=== PATIENT | female | born 1950 | race Caucasian/White ===

== ENCOUNTER → 2016-10-28 | Outpatient (CLI) | payer BC ==
[~2016-10-28] MED LIST: ALBUAER19 INH; AMLO5TAB4 PO; ASPI-232 PO; ATOR-22 PO; CALCTAB7 PO; CHOL20007 PO; DICY20TA10 PO; DVN160125 PO; FEXO1TAB49 PO; GLCS500 PO; IBUP-103 PO; METO-217 PO; OMEGCAP2 PO; POTA10CA28 PO; PRAV10TA39 PO; PRED20TA PO; VALS160T60 PO; VNTHFA/IN INH
--- NOTE | 2016-10-28 10:31 | DIAGNOSTIC IMAGING REPORT ---
ULTRASOUND KIDNEYS AND BLADDER CLINICAL HISTORY: Gross hematuria. COMPARISON STUDY: Abdominal CT dated 01/02/2016. TECHNIQUE: Real-time, grayscale, and color flow sonography of the kidneys and bladder is performed. Images are reviewed in the transverse and longitudinal planes. FINDINGS: Kidneys: The kidneys are normal in size and echotexture. The right kidney measures 11.5 cm and the left kidney measures 10.8 cm in length. There is mild prominence of the renal collecting system bilaterally. No hydronephrosis is seen. No shadowing renal calculi are identified. There is no sonographic evidence of contour deforming renal mass lesion. No perinephric fluid is identified. Bladder: The bladder is normal in appearance. Bilateral ureteral jets were seen. IMPRESSION: 1. The kidneys are normal in size and without hydronephrosis. 2. The bladder is normal as visualized. Electronically signed by: Taco Rivas M.D. 10/28/2016 10:29 AM Dictated Date/Time: 10/28/2016 10:22 AM
== END | disposition home or self-care (01) ==
LOC: C.ULTRBC 09:19
PROVIDERS: ATTEND Family Medicine
DX: D49.4 Neoplasm of unspecified behavior of bladder (principal); R31.0 Gross hematuria

== ENCOUNTER → 2016-11-19 | Outpatient (CLI) | payer BC | END | disposition home or self-care (01) | LOC: C.PATHSPEC 15:32 | PROVIDERS: ATTEND Urology | DX: D49.4 Neoplasm of unspecified behavior of bladder (principal) ==

== ENCOUNTER 2016-12-03 07:27 | Day surgery (SDC) | payer BC, OTHER ==
[2016-12-01 13:59] VITALS: BMI 25.0
--- NOTE | 2016-12-01 14:31 | PAT Medication Instructions ---
Service Date Dec 01, 2016. Current Home Medication List Albuterol Inhaler (Ventolin Inhaler), 2 PUFFS INH Q4-6H PRN for Wheezing Amlodipine Besylate (Norvasc), 5 MG PO QAM Aspirin (Aspir-81), 81 MG PO QAM Calcium Carbonate-Vitamin D W/ (Caltrate 600 Plus), 1 TAB PO QAM Cholecalciferol (Vitamin D3), 1 TAB PO QAM Dicyclomine Hcl (Dicyclomine Hcl), 1 TAB PO TID PRN for PRN Fexofenadine Hcl (Patti Allergy), 1 TAB PO PRN Glucosamine Sulfate (Glucosamine *), 1 TAB PO QAM Ibuprofen Tab (Advil), 200 MG PO PRN Metoprolol Succinate (Toprol Xl), 50 MG PO QAM Lincoln-3 Fatty Acids (Fish Oil), 1 CAP PO QAM Potassium Chloride (Micro-K Ext Rel), 10 MEQ PO QAM Pravastatin Sodium (Pravastatin Sodium), 20 MG PO QAM Valsartan/Hctz (Diovan Hct 160MG/25MG), 1 TAB PO QAM Medication Instructions For Your Scheduled Surgery - Check with surgeon for instructions: Aspirin (Aspir-81), 81 MG PO QAM Ibuprofen Tab (Advil), 200 MG PO PRN - Hold the following medications as of today 12/01/16: Glucosamine Sulfate (Glucosamine *), 1 TAB PO QAM Lincoln-3 Fatty Acids (Fish Oil), 1 CAP PO QAM - Hold the following medications the morning of surgery: Valsartan/Hctz (Diovan Hct 160MG/25MG), 1 TAB PO QAM Calcium Carbonate-Vitamin D W/ (Caltrate 600 Plus), 1 TAB PO QAM Cholecalciferol (Vitamin D3), 1 TAB PO QAM Fexofenadine Hcl (Patti Allergy), 1 TAB PO PRN Dicyclomine Hcl (Dicyclomine Hcl), 1 TAB PO TID PRN for PRN Potassium Chloride (Micro-K Ext Rel), 10 MEQ PO QAM - Take the following medications the morning of surgery with a sip of water OTHERWISE NOTHING TO EAT OR DRINK AFTER MIDNIGHT: Albuterol Inhaler (Ventolin Inhaler), 2 PUFFS INH Q4-6H PRN for Wheezing (use if needed; BRING TO HOSPITAL) Amlodipine Besylate (Norvasc), 5 MG PO QAM Metoprolol Succinate (Toprol Xl), 50 MG PO QAM Pravastatin Sodium (Pravastatin Sodium), 20 MG PO QAM - Take the following medications as scheduled the night before surgery: Albuterol Inhaler (Ventolin Inhaler), 2 PUFFS INH Q4-6H PRN for Wheezing Dicyclomine Hcl (Dicyclomine Hcl), 1 TAB PO TID PRN for PRN If you have any questions please call us at [phone] or [phone] or [phone]
[2016-12-01 15:15] LABS: BASO % 0.5 %; BASO ABS # 0.04 K/uL (0-0.2); COMPLETE YES; HEMATOCRIT 41.1 % (37-47); IG% 0.3 %; LYMPH % 21.4 %; LYMPH ABS # 1.64 K/uL (1.2-3.4); MEAN CELL VOLUME 89.9 fL (80-100); MEAN CORPUSCULAR HEMOGLOBIN 30.4 pg (25-34); MEAN CORPUSCULAR HGB CONC 33.8 g/dl (32-36); MEAN PLATELET VOLUME 10.3 fL (7.4-10.4); MONO % 5.5 %; NEUT % 70.3 %; PLATELET COUNT 306 K/uL (130-400); RED BLOOD COUNT 4.57 M/uL (4.2-5.4); WHITE BLOOD COUNT 7.65 K/uL (4.8-10.8)
[2016-12-01 15:45] LABS: BUN/CREATININE RATIO 22.9 (10-20); CALCIUM 9.3 mg/dl (8.5-10.1); CREATININE 0.84 mg/dl (0.60-1.20); POTASSIUM 3.5 mmol/L (3.5-5.1)
[~2016-12-03] VITALS: Ht 157.5 cm; Wt 61.2 kg
[~2016-12-03 07:27] MED LIST changes: +ACETAMINOPHEN 1000 MG/100 ML IV IV ONE; -AMLO5TAB4 PO; -ASPI-232 PO; -ATOR-22 PO; +CEFAZOLIN 2000 MG/60 ML D5W 50 ML IV SCH; +DEXAMETHASONE SOD INJ 4 MG/ML VIAL ONE; -DVN160125 PO; +EpHEDrine SULFATE INJ 50 MG/ML AMP ONE; +FENTANYL CITRATE INJ 50 MCG/1 ML 2 ML VIAL ONE; +GLYCOPYRROLATE INJ 0.2 MG/ML VIAL ONE; -IBUP-103 PO; +LACTATED RINGER'S 1000ML 1,000 ML IV SCH; +LIDOCAINE HCL 2% 2 ML VIAL (20MG/ML) ONE; -METO-217 PO; +MIDAZOLAM HCL 1 MG/ML 2ML VIAL ONE; +NEOSTIGMINE METHYLSULFATE 5 MG/5 ML SYR ONE; +ONDANSETRON INJ 2 MG/ML 2 ML VIAL ONE; +PHENYLEPHRINE HCL INJ 10 MG/ML VIAL ONE; -POTA10CA28 PO; -PRED20TA PO; +PROPOFOL IV EMULSION 10 MG/ML 20 ML VIAL IV ONE; +ROCURONIUM BROMIDE 10 MG/ML 5 ML VIAL ONE; +SCOPOLAMINE 1.5 MG TDSY TD SCH; +SUCCINYLCHOLINE CHLORIDE 20 MG/ML 10 ML VIAL IV ONE; -VALS160T60 PO; -VNTHFA/IN INH
[2016-12-03] MEDS ORDERED: METOCLOPRAMIDE HCL INJ 5 MG/ML 2 ML VIAL ONE (07:52)
[2016-12-03 08:04] VITALS: BP 150/85; PULSE 65; TEMP 36.9; O2SAT 96; Ht 157.5 cm; Wt 61.2 kg
[2016-12-03] MEDS ORDERED: SODIUM CHLORIDE 0.9% 1000ML 1,000 ML IV SCH (08:49)
--- NOTE | 2016-12-03 08:49 | History & Physical Bridge Note ---
H&P Re-Evaluation Bridge Note: I have examined the patient, reviewed the History & Physical and in the interval since the performance of the History & Physical I have noted the following changes of clinical significance: No changes noted
--- NOTE | 2016-12-03 08:50 | Discharge Instructions ---
Discharge Instructions Visit Reason for Visit: Left Ovarian Cyst Discharge Discharge Diagnosis / Problem: Ovarian cyst Discharge Goals Goal(s): Specific goals Activity Recommendations Activity Limitations: per Instructions/Follow-up section Anesthesia . Post Anesthesia Instructions: If you have had General Anesthesia or IV Sedation: * Do not drive today. * Resume driving when surgeon permits. * Do not make important decisions or sign legal documents today. * Call surgeon for: 1. Temperature elevations greater than 101 degrees F. 2. Uncontrollable pain. 3. Excessive bleeding. 4. Persistent nausea and vomiting. 5. Medication intolerance (nausea, vomiting or rash). * For nausea and vomiting use only clear liquids such as: tea, soda, bouillon until nausea subsides, then gradually increase diet as tolerated. * If you have any concerns or questions, call your surgeon's office. If physician is unavailable and it is an emergency, call 911 or go to the nearest emergency room. . Instructions / Follow-Up Instructions / Follow-Up ACTIVITY RECOMMENDATIONS: * Rest the first 2-3 days. You should be back to your normal activity levels by day 3. * No heavy lifting for 2 weeks. * No intercourse, tampons or douching for 1-2 weeks. * You may shower the next day. * Do not drive anytime that you are taking narcotic pain medicines. RETURN TO SCHOOL/WORK: * May return to school or work after 2-3 days. DIET: Nausea may occur in the immediate post-operative period. If so, take clear liquids such as tea, bouillon, apple juice until all nausea has subsided, then resume usual diet. MEDICATIONS: Resume previous medications unless instructed otherwise by your surgeon. Ibuprofen 200mg 2-3 tablets every 4-6 hours as needed -- OR -- Aleve 2 tablets every 8-12 hours as needed for post-operative discomfort Medications are over the counter. Tylenol may be used if above medications are contraindicated or not preferred. Medication should be taken with food or milk. Do not take on an empty stomach. SPECIAL CARE INSTRUCTIONS: * Check temperature twice daily for one week. report any elevation over 101 degrees. * You may experience some vagina spotting and/or bleeding. This is normal for 1 -2 weeks and should not be heavier than a normal period. If it is unusual in amount, call your physician. * Post-operative discomfort may consist of a sore throat, a "bloated" feeling and pain in the shoulders. these are normal symptoms, which usually only last for 2-3 days. * Remove band-aids tomorrow and shower. There is no need to replace band-aids unless there is drainage or discomfort. FOLLOW UP VISIT: Call your doctor's office for a post-operative 2 week visit if not already scheduled. Diet Recommendations Recommended Home Diet: resume previous diet Medical Emergencies . Who to Call and When: Medical Emergencies: If at any time you feel your situation is an emergency, please call 911 immediately. . Non-Emergent Contact . . "Provider Documentation" section prepared by Regla Cruz.
[2016-12-03] MEDS ORDERED: ONDANSETRON INJ 2 MG/ML 2 ML VIAL IV PRN (09:00)
[2016-12-03] MEDS ORDERED: IBUPROFEN 600 MG TAB PO PRN (09:00)
[2016-12-03] MEDS ORDERED: KETOROLAC TROMETHAMINE 15 MG/ML VIAL IV. PRN (09:00)
[2016-12-03] MEDS ORDERED: PROMETHAZINE HCL INJ 25 MG in SODIUM CHLORIDE 0.9% 50ML 50 ML IV PRN (09:00)
[2016-12-03] MEDS ORDERED: OXYCODONE/ACETAMINOPHEN 5-325 TAB PO PRN ×2 (09:00)
[2016-12-03] MEDS ORDERED: GLYCOPYRROLATE INJ 0.2 MG/ML VIAL ONE (09:41)
[2016-12-03] MEDS ORDERED: PROPOFOL IV EMULSION 10 MG/ML 20 ML VIAL IV ONE (09:41)
[2016-12-03] MEDS ORDERED: ONDANSETRON INJ 2 MG/ML 2 ML VIAL ONE (09:41)
[2016-12-03] MEDS ORDERED: DEXAMETHASONE SOD INJ 4 MG/ML VIAL ONE (09:41)
--- NOTE | 2016-12-03 09:58 | [facility] Post Operative Brief Note ---
Immediate Operative Summary Operative Date Dec 03, 2016. Pre-Operative Diagnosis Left ovarian cyst Post-Operative Diagnosis Same as pre-operative diagnosis Procedure(s) Performed Laparoscopic Left Salpingo-Oophorectomy Surgeon Dr. Regla Cruz Community Case Manager Surgeon(s) Dr. Jo Christopher Estimated Blood Loss 5ml Findings R streak ovary. L ovary approx 2-3cm in greatest dimension. Tubes and uterus WNL. Specimens A: Left ovary and fallopian tube Complication(s) None Disposition Recovery Room / PACU
--- NOTE | 2016-12-03 10:04 | Medical Student: [facility] ---
Operative Report Operative Date Dec 03, 2016. Pre-Operative Diagnosis left ovarian cyst Post-Operative Diagnosis left ovarian cyst Procedure(s) Performed laparoscopic left salpingo-oophorectomy Surgeon Dr. Cruz Caramel Coloring Operator Surgeon(s) Dr. Christopher Estimated Blood Loss 5mls Findings excised enlarged left ovary with tube, streak right ovary and tube, normal appearing ligaments, normal appearing uterus Specimens left ovary and tube Drains hammond catheter Anesthesia general Complication(s) None Disposition Recovery Room / PACU Implants none
[2016-12-03 10:40] VITALS: BP 128/78; PULSE 57; TEMP 36.5; O2SAT 98
[2016-12-03 11:10] VITALS: BP 114/70; PULSE 56; TEMP 36.7; O2SAT 97
--- NOTE | 2016-12-03 12:28 | Anesthesiology Progress Note ---
Anesthesia Post Op Note Date & Time Dec 03, 2016 at 12:28 Vital Signs Pain Intensity: 5.0 Vital Signs Past 12 Hours Date Time Temp Pulse Resp B/P Pulse Ox O2 Delivery O2 Flow Rate FiO2 12/03/16 11:10 36.7 56 16 114/70 97 Nasal Cannula 0 12/03/16 10:40 36.5 57 16 128/78 98 Nasal Cannula 0 12/03/16 10:35 36.5 59 16 140/80 100 Nasal Cannula 2 12/03/16 10:25 62 16 128/79 100 Nasal Cannula 2 12/03/16 10:15 72 16 127/73 100 Mask 10 12/03/16 10:05 71 16 128/73 100 Mask 10 12/03/16 10:02 36.2 74 12 124/75 100 Mask 10 12/03/16 08:04 36.9 65 18 150/85 96 Room Air Notes Mental Status: alert / awake / arousable, participated in evaluation Pt Amnestic to Procedure: Yes Nausea / Vomiting: adequately controlled Pain: adequately controlled Airway Patency, RR, SpO2: stable & adequate BP & HR: stable & adequate Hydration State: stable & adequate Anesthetic Complications: no major complications apparent
--- NOTE | 2016-12-09 13:00 | OPERATIVE REPORT ---
DATE OF OPERATION: 12/03/2016 PREOPERATIVE DIAGNOSIS: Left ovarian cyst. POSTOPERATIVE DIAGNOSIS: Same. PROCEDURE: Laparoscopic left salpingo-oophorectomy. SURGEON: Dr. Cruz. CERTIFIED DIABETES EDUCATOR: Dr. Jo Christopher. ESTIMATED BLOOD LOSS: 5 mL. FINDINGS: Right streak ovary, left ovary 2-3 cm in greatest dimension and tubes and uterus within normal limits. SPECIMENS: Left ovary and fallopian tube. COMPLICATIONS: None. DISPOSITION: Stable to the recovery room. OPERATION AND FINDINGS: DESCRIPTION: Madelaine was placed on the table in the supine position. A Daniels catheter was established. The abdomen was then prepped. Entry was made to the umbilicus in optical manner without complication. The abdomen was then insufflated. The patient was placed in Trendelenburg position and right and left lower quadrant ports were established under direct visualization without complication. The pelvic organs appeared to show a normal uterus, normal tubes and right streak ovary with a left ovary that was slightly dilated 2-3 cm in greatest dimension. While the insurance account assistant elevated the left tube using an atraumatic grasper, I used the Harmonic scalpel to ligate and divide the left IP ligament, left uteroovarian ligament and left tubal stump excising the left ovary and tube en bloc. This was then retrieved using an EndoCatch bag through the patient's umbilicus intact. After the sample had been retrieved, the final survey of the pelvic area revealed good hemostasis at all working sites. The abdomen was desufflated, ports were removed. The umbilicus was closed using a UR-6 at the fascial layer and all sites were closed using Dermabond at the skin. The patient was then transferred to the recovery room in stable condition. I attest to the content of the Intraoperative Record and any orders documented therein. Any exceptio ns are noted below.
[2017-06-20] MEDS ORDERED: POTA10CA28 PO (13:57)
[2017-06-20] MEDS ORDERED: METO-217 PO (13:57)
[2017-06-20] MEDS ORDERED: VALS160T60 PO (13:57)
[2017-06-20] MEDS ORDERED: IBUP-103 PO (13:58)
[2017-06-20] MEDS ORDERED: AMLO5TAB4 PO (14:15)
[2017-06-20] MEDS ORDERED: ASPI-232 PO (18:14)
== END 2016-12-03 11:50 | disposition home or self-care (01) ==
LOC: C.ACU 07:27
PROVIDERS: ATTEND Obstetrics & Gynecology
DX: D27.1 Benign neoplasm of left ovary (principal); R10.31 Right lower quadrant pain; I10 Essential (primary) hypertension; K58.9 Irritable bowel syndrome, unspecified; E55.9 Vitamin D deficiency, unspecified

== ENCOUNTER → 2017-02-09 | Outpatient (CLI) | payer BC ==
[~2017-02-09] MED LIST changes: -ACETAMINOPHEN 1000 MG/100 ML IV IV ONE; +AMLO5TAB4 PO; +ASPI-232 PO; +ATOR-22 PO; -CEFAZOLIN 2000 MG/60 ML D5W 50 ML IV SCH; -DEXAMETHASONE SOD INJ 4 MG/ML VIAL ONE; -EpHEDrine SULFATE INJ 50 MG/ML AMP ONE; -FENTANYL CITRATE INJ 50 MCG/1 ML 2 ML VIAL ONE; -FEXO1TAB49 PO; -GLCS500 PO; -GLYCOPYRROLATE INJ 0.2 MG/ML VIAL ONE; +IBUP-103 PO; -LACTATED RINGER'S 1000ML 1,000 ML IV SCH; -LIDOCAINE HCL 2% 2 ML VIAL (20MG/ML) ONE; +METO-217 PO; -MIDAZOLAM HCL 1 MG/ML 2ML VIAL ONE; -NEOSTIGMINE METHYLSULFATE 5 MG/5 ML SYR ONE; -ONDANSETRON INJ 2 MG/ML 2 ML VIAL ONE; -PHENYLEPHRINE HCL INJ 10 MG/ML VIAL ONE; +POTA10CA28 PO; +PRED20TA PO; -PROPOFOL IV EMULSION 10 MG/ML 20 ML VIAL IV ONE; -ROCURONIUM BROMIDE 10 MG/ML 5 ML VIAL ONE; -SCOPOLAMINE 1.5 MG TDSY TD SCH; -SUCCINYLCHOLINE CHLORIDE 20 MG/ML 10 ML VIAL IV ONE; +VALS160T60 PO; +VNTHFA/IN INH
--- NOTE | 2017-02-09 11:13 | DIAGNOSTIC IMAGING REPORT ---
L-SPINE MIN 4 VIEWS ROUTINE CLINICAL HISTORY: Low back pain COMPARISON STUDY: No previous studies for comparison. FINDINGS: There is a mild S-shaped scoliosis. The bones are osteopenic. 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 There are multiple lower thoracic compression deformities. No lumbar fractures or subluxations are visualized. There are multilevel degenerative changes with disc space narrowing most pronounced at the L3-4 level. Scattered calcified mesenteric lymph nodes are visualized. There is no pathologic bowel dilatation. IMPRESSION: Mild scoliosis. Osteopenia. Degenerative changes most pronounced at the L3-4 level. Electronically signed by: Dimas Perez M.D. 02/09/2017 11:11 AM Dictated Date/Time: 02/09/2017 11:09 AM
== END | disposition home or self-care (01) ==
LOC: C.RAD1850 10:27
PROVIDERS: ATTEND Nurse Practitioner Family
DX: M54.5 Low back pain (principal)

== ENCOUNTER 2017-06-20 18:58 | Emergency (ER) | payer BC ==
[~2017-06-20] VITALS: Ht 157.5 cm; Wt 53.0 kg
[~2017-06-20 18:58] MED LIST changes: -ATOR-22 PO; -PRED20TA PO; -VNTHFA/IN INH
[2017-06-20 19:00] VITALS: TEMP 36.6; Ht 157.5 cm; Wt 53.0 kg
[2017-06-20] MEDS ORDERED: DiphenhydrAMINE HCL 50 MG/ML VIAL IV STA (19:09)
[2017-06-20] MEDS ORDERED: METHYLPREDNISOLONE 125 MG VIAL IV STA (19:09)
[2017-06-20] MEDS ORDERED: SODIUM CHLORIDE 0.9% 500ML 500 ML IV STA (19:09)
[2017-06-20] MEDS ORDERED: RANITIDINE HCL 50 MG/100 ML D5W IV STA (19:09)
--- NOTE | 2017-06-20 19:28 | EMERGENCY ROOM VISIT NOTE ---
History Report prepared by Justine: Dedrick Strickland Under the Supervision of: Dr. Tasha Olvera M.D. First contact with patient: 19:03 Chief Complaint: ALLERGIC REACTION Stated Complaint: ALLERGIC REACTION TO BEE STING, LIPS SWELLING History of Present Illness The patient is a 66 year old female who presents to the Emergency Room with complaints of an allergic reaction that began 45 minutes ago. At this time, she was stung by a bee twice, once on her right hand and once on her lower lip. She took 2 Benadryl at this time. She states that she is having a hard time swallowing secondary to her neck swelling. She denies any shortness of breath at this time. She has a past medical history of hypertension. She is taking Norvasc, Toprol, and Diovan. Source of History: patient Onset: 45 minutes ago Position: other (global) Symptom Intensity: moderate Quality: other (Allergic Reaction) Timing: constant Associated Symptoms: No SOB Note: She has swelling to the lower lip and neck. Review of Systems See HPI for pertinent positives & negatives. A total of 10 systems reviewed and were otherwise negative. Past Medical & Surgical Medical Problems: (1) Asthma (2) Hypertension Surgical Problems: (1) Total knee replacement status Family History FH: cancer FH: heart disease Social History Smoking Status: Never Smoker Alcohol Use: none Drug Use: none Marital Status: Housing Status: lives with family Occupation Status: retired Current/Historical Medications Scheduled Amlodipine Besylate (Norvasc), 5 MG PO QAM Aspirin (Aspir-81), 81 MG PO QAM Atorvastatin (Lipitor), 20 MG PO DAILY Metoprolol Succinate (Toprol Xl), 50 MG PO QAM Potassium Chloride (Micro-K Ext Rel), 10 MEQ PO QAM Prednisone (Prednisone), 40 MG PO DAILY Valsartan/Hctz (Diovan Hct 160MG/25MG), 1 TAB PO QAM Scheduled PRN Albuterol Hfa (Ventolin Hfa), 2 PUFFS INH Q4-6HRS PRN for SOB/Wheezing Ibuprofen Tab (Advil), 200 MG PO UD PRN for Pain or Fever Allergies Coded Allergies: Iodinated Diagnostic Agents (Verified Allergy, Intermediate, SEVERE FACIAL SWELLING, RASH, ITCHING, 12/03/16) Diltiazem (Verified Allergy, Unknown, per cardio note , 12/03/16) Grass (Verified Allergy, Unknown, ENVIRONMENTAL ALLERGY = ASTHMA, 12/01/16) Lubiprostone (Verified Allergy, Unknown, per cardio note , 12/03/16) Red Dye (Verified Allergy, Unknown, per cardio note , 12/03/16) Yellow Dye (Verified Allergy, Unknown, per cardio note , 12/03/16) Codeine (Verified Adverse Reaction, Intermediate, HYPOTENSION, TACHYCARDIA , 12/03/16) PER PT, CAN TAKE PERCOCET W/ ONLY MILD STOMACH UPSET Trimethobenzamide (Verified Adverse Reaction, Unknown, INJECTION SITE RXN , 12/03/16) THIGH SWOLLEN AND REDDENED Physical Exam Vital Signs Date Time Temp Pulse Resp B/P (MAP) Pulse Ox O2 Delivery O2 Flow Rate FiO2 06/20/17 20:21 63 20 152/89 97 06/20/17 19:35 Room Air 06/20/17 19:00 36.6 70 20 168/98 94 Room Air Physical Exam Vital signs reviewed. General: Well-appearing female, in no significant distress. HEENT: No scleral icterus, PERRLA, no periorbital or posterior oropharyngeal edema, edema of the lower lip, no foreign bodies visualized, posterior oropharynx clear, neck supple. Atraumatic. Cardiovascular: Regular rate and rhythm, no extra sounds. Pulmonary: Clear to auscultation bilaterally, normal work of breathing. Abdomen: Soft, nontender, nondistended, positive bowel sounds. Musculoskeletal: Atraumatic, no peripheral edema. Neurologic: Patient awake alert and oriented x 3 Skin: Warm, dry, no rash Medical Decision & Procedures Medications Administered Medications (Trade) Dose Ordered Sig/Amanda Route Start Time Stop Time Status Last Admin Dose Admin Sodium Chloride 500 ml @ 999 mls/hr Q31M STAT IV 06/20/17 19:09 06/20/17 19:39 DC 06/20/17 19:27 999 MLS/HR Diphenhydramine HCl (Benadryl Inj) 25 mg NOW STAT IV 06/20/17 19:09 06/20/17 19:13 DC 06/20/17 19:27 25 MG Methylprednisolone Sodium Succinate (Solu-Medrol IV) 125 mg NOW STAT IV 06/20/17 19:09 06/20/17 19:13 DC 06/20/17 19:27 125 MG Ranitidine HCl (zANTac IV) 50 mg NOW STAT IV 06/20/17 19:09 06/20/17 19:13 DC 06/20/17 19:28 50 MG Epinephrine (Epipen) 0.3 mg ONE STAT IM 06/20/17 20:11 06/20/17 20:13 DC 06/20/17 20:18 0.3 MG ED Course 1902: Past medical records reviewed. The patient was evaluated in room B9. A complete history and physical examination was performed. 1908: Ordered Ranitidine HCl 50 mg IV, Solu-Medrol IV 125 mg IV, Benadryl Inj 25 mg IV, Sodium Chloride 500 ml @ 999 mls/hr IV 2010: Ordered Epinephrine 0.3 mg IM 2030: Upon reevaluation, the patient appeared to have improvement of her symptoms. I discussed findings with her. She verbalized agreement of the treatment plan. She was discharged home. Medical Decision Differential diagnosis: Etiologies such as allergic reaction, anaphylaxis, urticaria, Nina-Abhijit syndrome, toxic epidermal necrolysis, erythema multiforme, cellulitis, as well as others were entertained. This patient was evaluated and appeared to be in no significant distress. IV access was obtained and patient was placed on the child monitor. She was given 25 mg of IV Benadryl she had had 50 mg orally prior to arrival. She was given 125 mg of IV Solu-Medrol and 50 mg of IV Zantac. Patient was hydrated with normal saline solution. Patient was observed in the ER and had significant improvement in her symptoms. She was given an EpiPen at discharge with instructions. She will continue prednisone 40 mg daily for 4 more days, starting tomorrow. She will continue Benadryl as needed. The patient will follow-up with her physician this week for reevaluation return to the ER for worsening of symptoms or any medical concerns. Medication Reconcilliation Current Medication List: was personally reviewed by me Blood Pressure Screening Patient's blood pressure: Elevated blood pressure Blood pressure disposition: Elevated BP felt to be situational Impression Primary Impression: Allergic reaction Scribe Attestation The scribe's documentation has been prepared under my direction and personally reviewed by me in its entirety. I confirm that the note above accurately reflects all work, treatment, procedures, and medical decision making performed by me. Departure Information Dispostion Home / Self-Care Prescriptions Prednisone (Prednisone) 20 Mg Tab 40 MG PO DAILY, #8 TAB Prov: Tasha Olvera M.D. 06/20/17 Referrals Sailaja Bansal DO (PCP) Forms HOME CARE DOCUMENTATION FORM, IMPORTANT VISIT INFORMATION Patient Instructions My [facility] Additional Instructions Diagnosis: Allergic reaction Benadryl 25-50 mg every 6 hours as needed for allergic symptoms. Prednisone 40 mg daily for 4 more days. Start tomorrow. EpiPen as directed for severe allergic symptoms. Return to the emergency department immediately if you use the EpiPen. Follow-up with your physician for reevaluation in the next 1-2 weeks. Return to the ER for worsening of symptoms or any medical concerns.
[2017-06-20] MEDS ORDERED: VNTHFA/IN INH (19:54)
[2017-06-20] MEDS ORDERED: ATOR-22 PO (19:54)
[2017-06-20] MEDS ORDERED: EPINEPHRINE ADULT AUTO-INJECT 0.3 MG SYR IM STA (20:11)
[2017-06-20] MEDS ORDERED: PRED20TA PO (20:11)
[2017-06-20 20:21] VITALS: BP 152/89; PULSE 63; O2SAT 97
== END 2017-06-20 20:23 | disposition home or self-care (01) ==
LOC: C.EDB 18:59
DX: T63.441A Toxic effect of venom of bees, accidental (unintentional), initial encounter (principal); I10 Essential (primary) hypertension; J45.909 Unspecified asthma, uncomplicated; Z96.659 Presence of unspecified artificial knee joint; Z79.82 Long term (current) use of aspirin; Z79.899 Other long term (current) drug therapy; Z88.5 Allergy status to narcotic agent; Z91.018 Allergy to other foods; Z91.041 Radiographic dye allergy status; Z80.9 Family history of malignant neoplasm, unspecified; Z82.49 Family history of ischemic heart disease and other diseases of the circulatory system

== ENCOUNTER → 2017-09-01 | Outpatient (CLI) | payer BC ==
[~2017-09-01] MED LIST changes: -ALBUAER19 INH; -ASPI-232 PO; +ATOR-22 PO; -CALCTAB7 PO; -CHOL20007 PO; -DICY20TA10 PO; -OMEGCAP2 PO; -PRAV10TA39 PO; +VNTHFA/IN INH
--- NOTE | 2017-09-01 15:31 | MAMMOGRAPHY REPORT ---
BILATERAL DIGITAL SCREENING MAMMOGRAM WITH CAD: 09/01/2017 TECHNIQUE: Current study was also evaluated with a Computer Aided Detection (CAD) system. Bilateral CC and MLO views were obtained. COMPARISON: Comparison is made to exams dated: 08/25/2016 mammogram, 08/20/2015 mammogram, 08/08/2014 mammogram, 08/07/2013 mammogram, 07/11/2012 mammogram, and 07/07/2011 mammogram - [facility]. BREAST COMPOSITION: The tissue of both breasts is heterogeneously dense, which may obscure small mas ses. FINDINGS: No suspicious masses, calcifications, or areas of architectural distortion are noted in ei ther breast. There has been no significant interval change compared to prior exams. IMPRESSION: ACR BI-RADS CATEGORY 1: NEGATIVE There is no mammographic evidence of malignancy. A 1 year screening mammogram is recommended. The pa tient will receive written notification of the results. Approximately 10% of breast cancers are not detected with mammography. A negative mammographic report should not delay biopsy if a clinically suggestive mass is present. Candi Perez M.D. ah/:09/01/2017 07:46:56 Airplane Electrical Repairer: Caitlin SOSA(R)(M), [facility] letter sent: Normal 1/2 BI-RADS Code: ACR BI-RADS Category 1: Negative
== END | disposition home or self-care (01) ==
LOC: C.MAMM 07:28
PROVIDERS: ATTEND Obstetrics & Gynecology
DX: Z12.31 Encounter for screening mammogram for malignant neoplasm of breast (principal)

== ENCOUNTER → 2017-09-14 | Day surgery (SDC) | payer BC ==
[2017-08-19 11:41] VITALS: Ht 158.8 cm; Wt 60.9 kg
[~2017-09-14] VITALS: Ht 158.8 cm; Wt 60.9 kg
[~2017-09-14] MED LIST changes: +IOPAMIDOL INJ 61% 15 ML VIAL ONE; +LIDOCAINE HCL 1% MPF 5 ML VIAL ONE; +SODIUM CHLORIDE 0.9% INJ 10 ML VIAL ONE
[2017-09-14 16:30] VITALS: TEMP 36.7
--- NOTE | 2017-09-14 16:32 | Discharge Instructions ---
Discharge Instructions Date of Service Sep 14, 2017. Visit Reason for Visit: Lumbar Radiculopathy Discharge Discharge Diagnosis / Problem: bilateral hip pain Discharge Goals Goal(s): Decrease discomfort, Improve function Activity Recommendations Activity Limitations: resume your previous activity Anesthesia . Post Anesthesia Instructions: If you have had General Anesthesia or IV Sedation: * Do not drive today. * Resume driving when surgeon permits. * Do not make important decisions or sign legal documents today. * Call surgeon for: 1. Temperature elevations greater than 101 degrees F. 2. Uncontrollable pain. 3. Excessive bleeding. 4. Persistent nausea and vomiting. 5. Medication intolerance (nausea, vomiting or rash). * For nausea and vomiting use only clear liquids such as: tea, soda, bouillon until nausea subsides, then gradually increase diet as tolerated. * If you have any concerns or questions, call your surgeon's office. If physician is unavailable and it is an emergency, call 911 or go to the nearest emergency room. . Diet Recommendations Recommended Home Diet: resume previous diet Procedures Procedures Performed: Lumbar Epidural Steroid Injection Pending Studies Studies pending at discharge: no Medical Emergencies . Who to Call and When: Medical Emergencies: If at any time you feel your situation is an emergency, please call 911 immediately. . Non-Emergent Contact Non-Emergency issues call your: Specialist . . "Provider Documentation" section prepared by Jayesh Boone. .
[2017-09-14 16:42] VITALS: BP 147/85; PULSE 74; O2SAT 98
--- NOTE | 2017-09-14 18:03 | OPERATIVE REPORT ---
DATE OF OPERATION: 09/14/2017 PREOPERATIVE DIAGNOSIS: T12 compression fracture with suspected bilateral L1 radiculopathies. POSTOPERATIVE DIAGNOSES: Same. PROCEDURE: Left paramedian L1-L2 intralaminar epidural steroid injection under fluoroscopic guidance. INDICATIONS FOR PROCEDURE: The patient is a 67-year-old white female who is describing bilateral L1 radicular pain that is problematic to her that has not responded to conservative measures. She presents today at the request of Dr. Osborne for an epidural steroid injection. PHYSICAL EXAMINATION: GENERAL: Pleasant female seated comfortably. MUSCULOSKELETAL: Lumbar paraspinal muscles were palpated and noted be nontender. She had difficulty with extension, reproducing axial back pain. She had no focal weakness and no sensory loss. CONSENT: Verbal and written consent was obtained from the patient. Risks and benefits were reviewed. Risks include but are not limited to abscess, allergic reaction, and dural puncture. The patient wishes to proceed. DESCRIPTION OF PROCEDURE: The patient was taken back to the special procedures room of the [facility], where she was maintained in a prone position. Backside was cleansed with Betadine x3 and a dry sterile dressing was applied. Fluoroscope was used to identify the L1-L2 intralaminar space and overlying skin was anesthetized with 4 mL of lidocaine 1% with a 25-gauge 1-1/2 inch needle and a 22-gauge 3-1/2 inch Tuohy needle was then directed down towards the intralaminar space. It was advanced under lateral fluoroscopic guidance and loss of resistance was noted at a depth of 4 cm. Isovue 300 contrast was not used given the patient's ALLERGY TO IVP DYE. She then underwent injection after negative aspiration of 40 mg of Depo-Medrol and 4 mL of preservative free sodium chloride. Injection was well tolerated. DISPOSITION: 1. The patient was taken out into the discharge recovery area, where she will be discharged home once discharge criteria have been met. 2. Follow up in the [facility] office in 2-4 weeks. I attest to the content of the Intraoperative Record and any orders documented therein. Any exception s are noted below.
== END | disposition home or self-care (01) ==
LOC: X.SURG 14:03
PROVIDERS: ATTEND Physical Medicine & Rehabilitation
DX: M80.88XA Other osteoporosis with current pathological fracture, vertebra(e), initial encounter for fracture (principal); Z96.659 Presence of unspecified artificial knee joint

== ENCOUNTER → 2017-09-20 | Outpatient (CLI) | payer BC ==
[~2017-09-20] MED LIST changes: -IOPAMIDOL INJ 61% 15 ML VIAL ONE; -LIDOCAINE HCL 1% MPF 5 ML VIAL ONE; -SODIUM CHLORIDE 0.9% INJ 10 ML VIAL ONE
== END | disposition home or self-care (01) ==
LOC: C.MAMM 08:25
PROVIDERS: ATTEND Internal Medicine
DX: E55.9 Vitamin D deficiency, unspecified (principal); M54.5 Low back pain; M48.061 Spinal stenosis, lumbar region without neurogenic claudication; M85.88 Other specified disorders of bone density and structure, other site